=== PATIENT | male | born 1940 | race Caucasian/White ===

== ENCOUNTER → 2017-02-08 | Outpatient (CLI) | payer MEDICARE, OTHER | END | disposition home or self-care (01) | LOC: CFH 13:01 | PROVIDERS: ATTEND Internal Medicine Nephrology | DX: N28.1 Cyst of kidney, acquired (principal); R32 Unspecified urinary incontinence; R53.0 Neoplastic (malignant) related fatigue; I12.9 Hypertensive chronic kidney disease with stage 1 through stage 4 chronic kidney disease, or unspecified chronic kidney disease; N18.9 Chronic kidney disease, unspecified; D63.1 Anemia in chronic kidney disease; Z90.5 Acquired absence of kidney | CPT/HCPCS: 76770 ==

== ENCOUNTER 2018-03-20 10:24 | Emergency (ER) | payer MEDICARE ==
[~2018-03-20] VITALS: Ht 185.4 cm; Wt 108.0 kg
[2018-03-20] MEDS ORDERED: SODIUM CHLORIDE 0.9% 1,000ML IVBOLUS ONE (11:00)
[2018-03-20] MEDS ORDERED: LISI2.5T PO (11:11)
[2018-03-20] MEDS ORDERED: DOXA4TAB3 PO (11:12)
[2018-03-20 11:25] LABS: BASOPHILS # (AUTO) 0.02 x10^3/uL (0-0.1); BASOPHILS % (AUTO) 0 % (0-1); EOSINOPHILS # (AUTO) 0.07 x10^3/uL (0-0.4); EOSINOPHILS % (AUTO) 1 % (1-7); LYMPHOCYTES # (AUTO) 0.94 x10^3/uL (1-3.4); LYMPHOCYTES % (AUTO) 14 % (22-44); MD NO; MEAN CORPUSCULAR HEMOGLOBIN 32.1 pg (27.5-34.5); MEAN CORPUSCULAR HGB CONC 33.8 g/dL (33.2-36.2); MEAN PLATELET VOLUME 9.2 fL (7.4-10.4); MONOCYTES # (AUTO) 0.39 x10^3/uL (0.2-0.8); MONOCYTES % (AUTO) 6 % (2-9); NEUTROPHILS # (AUTO) 5.21 x10^3/uL (1.8-6.8); NEUTROPHILS % (AUTO) 79 % (42-75); PLATELET COUNT 165 x10^3/uL (130-400); RED BLOOD COUNT 4.12 x10^6/uL (4.38-5.82); RED CELL DISTRIBUTION WIDTH 13.7 % (9.4-14.8)
[2018-03-20 12:38] LABS: ALBUMIN 3.1 g/dL (3.4-5.0); ANION GAP 7 mmol/L (5-15); CALCIUM 8.3 mg/dL (8.5-10.1); CHLORIDE 112 mmol/L (98-107)
[2018-03-20 13:00] LABS: ALANINE AMINOTRANSFERASE 22 U/L (12-78); ALKALINE PHOSPHATASE 54 U/L (45-117); BILIRUBIN,TOTAL 0.5 mg/dL (0.2-1.0); CREATININE 1.53 mg/dL (0.7-1.3); TOTAL PROTEIN 6.1 g/dL (6.4-8.2)
[2018-03-20] MEDS ORDERED: LORazepam 1MG TABLET ONE (13:14)
[2018-03-20 14:44] VITALS: BP 133/66
== END 2018-03-20 14:45 | disposition home or self-care (01) ==
LOC: ED 12:57
DX: R55 Syncope and collapse (principal); I10 Essential (primary) hypertension
CPT/HCPCS: 36415; 80053; 85025; 93005; 96360; 99285; J7030

== ENCOUNTER → 2018-04-14 | Outpatient (CLI) | payer MEDICARE ==
[~2018-04-14] MED LIST: DOXA4TAB3 PO; LISI2.5T PO; REGADENOSON 0.4 MG/5 ML SYRINGE ONE
== END | disposition home or self-care (01) ==
LOC: CFH 07:39
PROVIDERS: ATTEND Internal Medicine Cardiovascular Disease
DX: I34.0 Nonrheumatic mitral (valve) insufficiency (principal); I10 Essential (primary) hypertension; I45.2 Bifascicular block; Z85.828 Personal history of other malignant neoplasm of skin; Z85.46 Personal history of malignant neoplasm of prostate; Z87.891 Personal history of nicotine dependence
CPT/HCPCS: 78452; 93017; 93306; A9502; J2785

== ENCOUNTER 2019-11-07 11:12 | Day surgery (SDC) | payer MEDICARE ==
[~2019-11-07] VITALS: Ht 188 cm; Wt 102.3 kg
[~2019-11-07 11:12] MED LIST changes: -REGADENOSON 0.4 MG/5 ML SYRINGE ONE
[2019-11-07] MEDS ORDERED: SODIUM CHLORIDE 0.9% 1,000 ML IV SCH (11:52)
[2019-11-07] MEDS ORDERED: ASPIRIN 325 MG TABLET EC PO ONE (12:00)
[2019-11-07] MEDS ORDERED: CYAN50008 PO (12:06)
[2019-11-07] MEDS ORDERED: CHOL10003 PO (12:06)
[2019-11-07] MEDS ORDERED: IRON15TA3 PO (12:06)
[2019-11-07] MEDS ORDERED: ASPI81TA45 PO (12:06)
[2019-11-07] MEDS ORDERED: FENTANYL PF 100 MCG/2ML ONE (12:24)
[2019-11-07] MEDS ORDERED: MIDAZOLAM 1 MG/ML, 5ML ONE (12:24)
[2019-11-07] MEDS ORDERED: LIDOCAINE 2%, 20ML ONE (12:25)
[2019-11-07] MEDS ORDERED: VERAPAMIL 2.5 MG/ML, 2ML ONE (12:25)
[2019-11-07] MEDS ORDERED: BIVALIRUDIN 250 MG ONE (12:25)
[2019-11-07] MEDS ORDERED: HEPARIN 1,000 UNITS/ML, 10ML ONE (12:25)
== END 2019-11-07 17:03 | disposition home or self-care (01) ==
LOC: CACL 11:12
PROVIDERS: ATTEND Internal Medicine Cardiovascular Disease
DX: R93.1 Abnormal findings on diagnostic imaging of heart and coronary circulation (principal); I25.10 Atherosclerotic heart disease of native coronary artery without angina pectoris; I65.23 Occlusion and stenosis of bilateral carotid arteries; I34.0 Nonrheumatic mitral (valve) insufficiency; I35.1 Nonrheumatic aortic (valve) insufficiency; I45.2 Bifascicular block; I10 Essential (primary) hypertension; E78.5 Hyperlipidemia, unspecified; R55 Syncope and collapse; R06.09 Other forms of dyspnea; R53.83 Other fatigue; G47.33 Obstructive sleep apnea (adult) (pediatric); Z79.82 Long term (current) use of aspirin; Z79.899 Other long term (current) drug therapy; Z85.46 Personal history of malignant neoplasm of prostate; Z01.818 Encounter for other preprocedural examination; Z98.890 Other specified postprocedural states
CPT/HCPCS: 75625; 92978; 93306; 93458; 93880; 93970; 99156; 99157; C1753; C1769; C1887; C1894; J0583; J1644; J2250; J3010; Q9967

== ENCOUNTER → 2019-11-10 | Outpatient (CLI) | payer MEDICARE ==
[~2019-11-10] MED LIST changes: +ASPI81TA45 PO; +CHOL10003 PO; +CYAN50008 PO; +IRON15TA3 PO; +OMNIPAQUE 350 MG/ML, 100ML BOTTLE ONE
== END | disposition home or self-care (01) ==
LOC: CFH 13:38
PROVIDERS: ATTEND Thoracic Surgery (Cardiothoracic Vascular Surgery)
DX: Z01.810 Encounter for preprocedural cardiovascular examination (principal); I65.21 Occlusion and stenosis of right carotid artery; I25.10 Atherosclerotic heart disease of native coronary artery without angina pectoris
CPT/HCPCS: 70496; 70498; Q9967

== ENCOUNTER → 2020-01-04 | Outpatient (CLI) | payer MEDICARE ==
[~2020-01-04] MED LIST changes: +ACET325T26 PO; +ATOR-2 PO; +CLOP75TA PO; +METO25TA35 PO/NG; -OMNIPAQUE 350 MG/ML, 100ML BOTTLE ONE
== END | disposition home or self-care (01) ==
LOC: CFH 12:37
PROVIDERS: ATTEND Internal Medicine Cardiovascular Disease
DX: J90 Pleural effusion, not elsewhere classified (principal); J98.11 Atelectasis; R00.2 Palpitations; R09.02 Hypoxemia; I10 Essential (primary) hypertension; E78.5 Hyperlipidemia, unspecified; I25.10 Atherosclerotic heart disease of native coronary artery without angina pectoris; I45.2 Bifascicular block
CPT/HCPCS: 71046